=== PATIENT | female | born 1955 | race Caucasian/White ===

== ENCOUNTER 2023-03-15 15:41 | Outpatient (CLI) | payer OTHER, MEDICAID | END 2023-03-15 15:42 | disposition home or self-care (01) | LOC: ULT 15:41 | PROVIDERS: ATTEND Internal Medicine Nephrology | DX: I12.9 Hypertensive chronic kidney disease with stage 1 through stage 4 chronic kidney disease, or unspecified chronic kidney disease (principal); N18.9 Chronic kidney disease, unspecified | CPT/HCPCS: 76770; 93975 ==

== ENCOUNTER 2023-09-11 17:08 | Inpatient (IN) | payer OTHER, MEDICAID ==
[2023-09-11 18:11] VITALS: BMI 23.1
[2023-09-11] MEDS ORDERED: Ondansetron PF 4 MG/2 ML Vial IVP PRN (20:59)
[2023-09-11 22:28] LABS: #Basophils 0.03 10x3/uL (0.0-0.2); %Basophils 0.3 % (0.0-1.0); %Eosinophils 1.6 % (0.0-10.0); %Monocytes 8.6 % (0.0-10.0); %Neutrophils 70.3 % (42.0-75.0); Hematocrit 40.3 % (36.0-47.0); Hemoglobin 13.3 g/dL (12.0-16.0); Mean Corpuscular Hemoglobin 28.7 pg (27.0-31.0); Mean Platelet Volume 10.5 fL (7.4-10.4); Platelet Count 185 10x3/uL (130-400); RBC Distribution Width 16.1 % (11.5-14.5); Red Blood Cell (RBC) Count 4.63 mill/uL (4.20-5.40)
[2023-09-11] MEDS: QUEtiapine 300 MG TAB PO SCH (22:37)
[2023-09-11] MEDS: Loratadine 10 MG TAB PO SCH (22:38)
[2023-09-11] MEDS: traMADol HCl 50 MG TAB PO PRN (22:38)
[2023-09-11] MEDS: hydrOXYzine 25 MG TAB PO PRN (22:40)
[2023-09-11] MEDS: Famotidine 20 MG TAB PO SCH (22:40)
[2023-09-11] MEDS: GoLYTELY 4,000 ml Bottle PO SCH (22:41)
[2023-09-11 22:46] LABS: Anion Gap 13 mmol/L (10-20); BUN (Urea Nitrogen) 46 mg/dL (9.8-20.1); Calc. Creatinine Clearance 36 mL/min (70-130); Carbon Dioxide 18 mmol/L (23-31); Chloride 113 mmol/L (98-107); Estimated GFR 41; Glucose 204 mg/dL (80-115); Potassium 4.8 mmol/L (3.5-5.1); Sodium 139 mmol/L (136-145)
[2023-09-11] MEDS: Cyclobenzaprine 10 MG TAB PO SCH (23:12)
[2023-09-11] MEDS: Gabapentin 300 MG CAP PO SCH (23:12)
[2023-09-11] MEDS: Ipratropium Bromide 2.5 ml Neb NEB SCH (23:15)
[2023-09-12 05:00] LABS: Hemoglobin A1c 5.9 % (4.0-6.0)
[2023-09-12 05:08] LABS: Anion Gap 10 mmol/L (10-20); BUN (Urea Nitrogen) 38 mg/dL (9.8-20.1); Calc. Creatinine Clearance 49 mL/min (70-130); Calcium 8.8 mg/dL (7.8-10.44); Carbon Dioxide 17 mmol/L (23-31); Chloride 112 mmol/L (98-107); Estimated GFR 59; Glucose 90 mg/dL (80-115); Iron 189 ug/dL (50-170); Iron Binding Capacity, Total 199 mcg/dL (265-497); Potassium 4.3 mmol/L (3.5-5.1); Sodium 135 mmol/L (136-145)
[2023-09-12 05:25] LABS: Hep C Index 0.05 S/CO (0-0.79)
[2023-09-12 07:01] LABS: Hep A IgM AB NONREACTIVE (NonReactive); Hep B Surf Ag NONREACTIVE S/CO (NonReactive); Hepatitis B Core IgM Abs NONREACTIVE S/CO (NonReactive)
[2023-09-12] MEDS: Mometasone 200 MCG/Formoterol 5 MCG 120 PUFF INHALER INH SCH (07:10)
[2023-09-12] MEDS: Loratadine 10 MG TAB PO SCH (08:11)
[2023-09-12] MEDS: QUEtiapine 300 MG TAB PO SCH (08:11)
[2023-09-12] MEDS: Famotidine/PF 20 mg/2ml Vial SLOW IVP SCH (08:11)
[2023-09-12] MEDS: Levothyroxine Sodium 25 MCG TAB PO SCH (08:12)
[2023-09-12] MEDS ORDERED: Potassium Chloride 20 MEQ TAB PO SCH (09:00)
[2023-09-12] MEDS ORDERED: hydrOXYzine 25 MG TAB PO SCH (09:00)
[2023-09-12 09:11] LABS: HBSAB Concentration Less than 8.00 mIU/mL
[2023-09-12] MEDS: QUEtiapine 25 MG TAB PO SCH (09:33)
[2023-09-12] MEDS: Gabapentin 300 MG CAP PO SCH (09:33)
[2023-09-12] MEDS: Potassium Bicarbonate/Cit Ac 20 MEQ TAB PO SCH (09:34)
[2023-09-12] MEDS: Ascorbic Acid 500 mg Chewable Tablet PO SCH (09:34)
[2023-09-12] MEDS: lamoTRIgine 100 MG TAB PO SCH (09:34)
[2023-09-12] MEDS: Cyclobenzaprine 10 MG TAB PO SCH (09:34)
[2023-09-12] MEDS: Lisinopril 5 MG TAB PO SCH (09:35)
[2023-09-12] MEDS: Pantoprazole 40 MG VIAL IVP SCH (09:35)
[2023-09-12 09:46] LABS: HBCM Index 0.07 S/CO (0-0.79); Hep A IgM S/CO 0.31 S/CO (0-0.79)
[2023-09-12 09:47] LABS: HBsAg Index 0.21 S/CO (0-0.99)
[2023-09-12 09:52] LABS: Hep B Surf AB NONREACTIVE (NonReactive)
[2023-09-12 09:53] LABS: Hep C IgG Ab NONREACTIVE S/CO (NonReactive)
[2023-09-12 09:56] LABS: Hematocrit 43.4 % (36.0-47.0); Hemoglobin 14.2 g/dL (12.0-16.0)
[2023-09-12] MEDS: Empagliflozin 10 MG TAB PO SCH (10:05)
[2023-09-12 10:50] LABS: Ferritin 286.11 ng/mL (10-291)
[2023-09-12 11:27] VITALS: BMI 23.1
[2023-09-12 11:46] LABS: ANA Symphony (Qualitative) Negative (Negative); ANA Symphony (Quantitative) 0.2 Ratio (< 0.7 Negative); EliA Vaculitis New Method **** NEW METHOD ****; Mitochondrial Ab 0.8 U/mL (<4 Negative); dsDNA IgG Antibody 0.9 IU/mL (<10 Negative)
[2023-09-12] MEDS: Prenatal Vitamin 1 TAB PO SCH (20:25)
[2023-09-12] MEDS: Rosuvastatin 10 MG TAB PO SCH (20:26)
[2023-09-13 03:13] LABS: Hepatitis A Total ABS Positive (Negative)
[2023-09-13 06:31] LABS: #Basophils 0.04 10x3/uL (0.0-0.2); %Basophils 0.4 % (0.0-1.0); %Eosinophils 1.1 % (0.0-10.0); %Lymphocytes 14.5 % (21.0-51.0); %Monocytes 9.3 % (0.0-10.0); %Neutrophils 74.4 % (42.0-75.0); Hematocrit 44.2 % (36.0-47.0); Hemoglobin 14.5 g/dL (12.0-16.0); Mean Corpuscular HGB CONC 32.8 g/dL (32.0-36.0); Mean Corpuscular Hemoglobin 28.1 pg (27.0-31.0); Mean Corpuscular Volume 85.7 fL (78.0-98.0); Mean Platelet Volume 9.5 fL (7.4-10.4); Platelet Count 196 10x3/uL (130-400); RBC Distribution Width 15.9 % (11.5-14.5); Red Blood Cell (RBC) Count 5.16 mill/uL (4.20-5.40)
[2023-09-13 06:49] LABS: ALT (SGPT) 42 U/L (8-55); AST (SGOT) 60 U/L (5-34); Alkaline Phosphatase 154 U/L (40-110); Anion Gap 14 mmol/L (10-20); BUN (Urea Nitrogen) 15 mg/dL (9.8-20.1); Bilirubin, Total 0.8 mg/dL (0.2-1.2); Calc. Creatinine Clearance 71 mL/min (70-130); Calcium 8.6 mg/dL (7.8-10.44); Carbon Dioxide 25 mmol/L (23-31); Chloride 104 mmol/L (98-107); Estimated GFR 93; Globulin 2.7 g/dL (2.4-3.5); Glucose 177 mg/dL (80-115); Potassium 3.5 mmol/L (3.5-5.1); Protein, Total 5.7 g/dL (5.8-8.1); Sodium 139 mmol/L (136-145)
[2023-09-13] MEDS ORDERED: PROPOFOL 0 ML ONE (08:58)
[2023-09-13] MEDS ORDERED: Lidocaine 1% PF 5 ML VIAL ONE (08:58)
[2023-09-13] MEDS ORDERED: PROPOFOL 200 MG/20 ML VIAL ONE (09:14)
[2023-09-13] MEDS: Famotidine 20 MG TAB PO SCH (10:44)
[2023-09-13] MEDS ORDERED: hydrOXYzine 25 MG TAB PO SCH (15:00)
[2023-09-13] MEDS: Acetaminophen 500 MG TAB PO PRN (16:11)
[2023-09-13] MEDS: hydrOXYzine 25 MG TAB PO SCH (21:25)
[2023-09-13] MEDS: Polyethylene Glycol 3350 17 GM Packet PO SCH (21:26)
[2023-09-14 06:17] LABS: #Basophils 0.03 10x3/uL (0.0-0.2); %Basophils 0.4 % (0.0-1.0); %Eosinophils 3.1 % (0.0-10.0); %Lymphocytes 23.6 % (21.0-51.0); %Monocytes 9.1 % (0.0-10.0); %Neutrophils 63.4 % (42.0-75.0); Hematocrit 43.5 % (36.0-47.0); Hemoglobin 14.5 g/dL (12.0-16.0); Mean Corpuscular HGB CONC 33.3 g/dL (32.0-36.0); Mean Corpuscular Hemoglobin 28.5 pg (27.0-31.0); Mean Corpuscular Volume 85.5 fL (78.0-98.0); Mean Platelet Volume 9.8 fL (7.4-10.4); Platelet Count 226 10x3/uL (130-400); RBC Distribution Width 15.5 % (11.5-14.5); Red Blood Cell (RBC) Count 5.09 mill/uL (4.20-5.40)
[2023-09-14 06:38] LABS: ALT (SGPT) 33 U/L (8-55); AST (SGOT) 44 U/L (5-34); Albumin 2.8 g/dL (3.4-4.8); Alkaline Phosphatase 135 U/L (40-110); Anion Gap 13 mmol/L (10-20); BUN (Urea Nitrogen) 9 mg/dL (9.8-20.1); Bilirubin, Total 0.8 mg/dL (0.2-1.2); Calc. Creatinine Clearance 73 mL/min (70-130); Calcium 8.9 mg/dL (7.8-10.44); Carbon Dioxide 27 mmol/L (23-31); Chloride 104 mmol/L (98-107); Estimated GFR 94; Globulin 2.8 g/dL (2.4-3.5); Glucose 107 mg/dL (80-115); Potassium 3.2 mmol/L (3.5-5.1); Protein, Total 5.6 g/dL (5.8-8.1); Sodium 141 mmol/L (136-145)
[2023-09-14] MEDS: hydrOXYzine 25 MG TAB PO PRN (12:57)
[2023-09-14 14:17] LABS: Smooth Muscle Total ABS 1 Units (0-19)
[2023-09-14] MEDS ORDERED: Dextrose 50% Abboject 50 ML SYRINGE SLOW IVP PRN (19:45)
[2023-09-14] MEDS ORDERED: Glucagon 1 MG/ML KIT IM PRN (19:45)
[2023-09-14] MEDS ORDERED: Dextrose 5% in Water 1,000 ML IV PRN (19:45)
[2023-09-14] MEDS: Famotidine 20 MG TAB PO SCH (20:39)
[2023-09-14] MEDS: NS 0.9% w/ 20 MEQ KCL 1,000 ML/1,000 ML BAG IV SCH (21:57)
[2023-09-15 06:36] LABS: ALT (SGPT) 30 U/L (8-55); AST (SGOT) 36 U/L (5-34); Albumin 2.8 g/dL (3.4-4.8); Alkaline Phosphatase 117 U/L (40-110); Anion Gap 10 mmol/L (10-20); BUN (Urea Nitrogen) 8 mg/dL (9.8-20.1); Bilirubin, Total 0.7 mg/dL (0.2-1.2); Calc. Creatinine Clearance 69 mL/min (70-130); Calcium 8.8 mg/dL (7.8-10.44); Carbon Dioxide 26 mmol/L (23-31); Chloride 106 mmol/L (98-107); Estimated GFR 90; Globulin 2.6 g/dL (2.4-3.5); Glucose 105 mg/dL (80-115); Potassium 3.8 mmol/L (3.5-5.1); Protein, Total 5.4 g/dL (5.8-8.1); Sodium 138 mmol/L (136-145)
[2023-09-15 06:58] LABS: #Basophils 0.04 10x3/uL (0.0-0.2); %Basophils 0.5 % (0.0-1.0); %Eosinophils 3.8 % (0.0-10.0); %Lymphocytes 24.3 % (21.0-51.0); %Monocytes 9.3 % (0.0-10.0); %Neutrophils 61.3 % (42.0-75.0); Hematocrit 42.3 % (36.0-47.0); Hemoglobin 13.8 g/dL (12.0-16.0); Mean Corpuscular HGB CONC 32.6 g/dL (32.0-36.0); Mean Corpuscular Hemoglobin 28.9 pg (27.0-31.0); Mean Corpuscular Volume 88.7 fL (78.0-98.0); Mean Platelet Volume 9.5 fL (7.4-10.4); Platelet Count 245 10x3/uL (130-400); RBC Distribution Width 15.3 % (11.5-14.5); Red Blood Cell (RBC) Count 4.77 mill/uL (4.20-5.40)
[2023-09-15] MEDS ORDERED: Potassium Bicarbonate/Cit Ac 20 MEQ TAB ONE (09:15)
[2023-09-15] MEDS ORDERED: Gabapentin 300 MG CAP ONE (09:15)
[2023-09-15] MEDS ORDERED: Cyclobenzaprine 10 MG TAB ONE (09:15)
[2023-09-15] MEDS ORDERED: lamoTRIgine 100 MG TAB ONE (09:15)
[2023-09-15] MEDS ORDERED: Empagliflozin 10 MG TAB ONE (09:15)
[2023-09-15] MEDS ORDERED: Ascorbic Acid 500 mg Chewable Tablet ONE (09:15)
[2023-09-15] MEDS ORDERED: Famotidine 20 MG TAB ONE (09:15)
[2023-09-15] MEDS ORDERED: QUEtiapine 25 MG TAB ONE ×2 (09:15→11:50)
[2023-09-15] MEDS ORDERED: hydrOXYzine 25 MG TAB ONE (09:15)
[2023-09-15] MEDS ORDERED: Lisinopril 5 MG TAB ONE (09:15)
[2023-09-15] MEDS ORDERED: Polyethylene Glycol 3350 17 GM Packet ONE (09:15)
[2023-09-15] MEDS ORDERED: NS 0.9% w/ 20 MEQ KCL 1,000 ML BAG ONE (11:50)
[2023-09-15] MEDS ORDERED: traMADol HCl 50 MG TAB ONE (11:50)
[2023-09-15] MEDS ORDERED: Ipratropium Bromide 2.5 ml Neb NEB PRN (14:48)
[2023-09-16 04:38] LABS: #Basophils 0.07 10x3/uL (0.0-0.2); %Lymphocytes 39.8 % (21.0-51.0); %Neutrophils 41.8 % (42.0-75.0); Hematocrit 43.4 % (36.0-47.0); Mean Corpuscular HGB CONC 32.3 g/dL (32.0-36.0); Mean Corpuscular Hemoglobin 27.9 pg (27.0-31.0); Mean Corpuscular Volume 86.5 fL (78.0-98.0); Mean Platelet Volume 9.3 fL (7.4-10.4); Platelet Count 260 10x3/uL (130-400); Red Blood Cell (RBC) Count 5.02 mill/uL (4.20-5.40)
[2023-09-16] MEDS: QUEtiapine 25 MG TAB PO SCH (09:08)
[2023-09-16] MEDS: Insulin Lispro 100 UNIT/ML 10 ML VIAL SC PRN (12:38)
[2023-09-17] MEDS: Ondansetron ODT 4 MG TAB PO PRN (09:30)
[2023-09-17 17:35] VITALS: BP 123/74; TEMP 97.9
== END 2023-09-17 18:41 | disposition home or self-care (01) | DRG 394 ==
LOC: 2NO 17:08 → UNDODISIN 09-17 18:41
PROVIDERS: ADMIT Internal Medicine; ATTEND Family Medicine
PROC: 0DBN8ZX Excision of Sigmoid Colon, Via Natural or Artificial Opening Endoscopic, Diagnostic (ICD-10-PCS; principal; 2023-09-13)
DX: K55.039 Acute (reversible) ischemia of large intestine, extent unspecified (principal); D62 Acute posthemorrhagic anemia; N17.9 Acute kidney failure, unspecified; I95.9 Hypotension, unspecified; F41.9 Anxiety disorder, unspecified; J44.9 Chronic obstructive pulmonary disease, unspecified; I10 Essential (primary) hypertension; F17.290 Nicotine dependence, other tobacco product, uncomplicated; M19.90 Unspecified osteoarthritis, unspecified site; K21.9 Gastro-esophageal reflux disease without esophagitis; F32.A Depression, unspecified; E11.9 Type 2 diabetes mellitus without complications; E03.9 Hypothyroidism, unspecified; E78.5 Hyperlipidemia, unspecified; Z88.5 Allergy status to narcotic agent; Z88.0 Allergy status to penicillin; Z88.1 Allergy status to other antibiotic agents; Z88.2 Allergy status to sulfonamides; Z88.8 Allergy status to other drugs, medicaments and biological substances; Z79.890 Hormone replacement therapy; Z79.899 Other long term (current) drug therapy; Z90.49 Acquired absence of other specified parts of digestive tract; Z90.710 Acquired absence of both cervix and uterus; Z98.51 Tubal ligation status; Z79.4 Long term (current) use of insulin; K59.09 Other constipation
CPT/HCPCS: 26641; 36415; 36416; 36430; 70450; 71045; 72125; 74177; 74183; 80048; 80053; 80074; 80307; 82728; 83036; 83516; 83540; 83550; 83880; 84484; 85014; 85018; 85025; 85610; 85730; 86015; 86038; 86225; 86706; 86708; 86850; 86900; 86901; 88305; 93005; 94640; 96365; 96374; 96375; C9113; J2354; J2405; J2704; J3480; J3490; J7050; P9016; P9040; Q0162; Q9967

== ENCOUNTER 2023-09-17 19:00 | Emergency (ER) | payer OTHER, MEDICAID ==
[2023-09-17] MEDS ORDERED: Lidocaine 1% PF 5 ML VIAL ONE (19:58)
[2023-09-17] MEDS ORDERED: Lorazepam 0.5 MG TAB ONE (20:45)
[2023-09-17] MEDS ORDERED: traMADol HCl 50 MG TAB ONE (21:27)
== END 2023-09-17 21:36 | disposition home or self-care (01) ==
LOC: ERS 19:00
DX: S63.125A Dislocation of interphalangeal joint of left thumb, initial encounter (principal); T14.8XXA Other injury of unspecified body region, initial encounter; E11.9 Type 2 diabetes mellitus without complications; I10 Essential (primary) hypertension; F17.290 Nicotine dependence, other tobacco product, uncomplicated; W10.9XXA Fall (on) (from) unspecified stairs and steps, initial encounter
CPT/HCPCS: 70450; 72125

== ENCOUNTER 2023-09-19 19:57 | Inpatient (IN) | payer OTHER, MEDICAID ==
[2023-09-19 21:01] VITALS: BMI 21.4
[2023-09-19] MEDS ORDERED: Dextrose 5% in Water 1,000 ML IV PRN (21:33)
[2023-09-19] MEDS ORDERED: Dextrose 50% Abboject 50 ML SYRINGE SLOW IVP PRN (21:33)
[2023-09-19] MEDS ORDERED: Ipratropium/Albuterol 3 ML NEB NEB PRN (21:36)
[2023-09-19] MEDS ORDERED: Insulin Lispro 100 UNIT/ML 10 ML VIAL SC PRN ×2 (21:42→21:43)
[2023-09-19] MEDS ORDERED: QUEtiapine 25 MG TAB PO PRN (22:25)
[2023-09-19] MEDS: traZODone HCl 50 MG TAB PO SCH (23:32)
[2023-09-19] MEDS: Rosuvastatin 10 MG TAB PO SCH (23:32)
[2023-09-19] MEDS: QUEtiapine 300 MG TAB PO SCH (23:33)
[2023-09-19] MEDS: Loratadine 10 MG TAB PO SCH (23:33)
[2023-09-19] MEDS: traMADol HCl 50 MG TAB PO SCH (23:33)
[2023-09-19] MEDS: Cyclobenzaprine 10 MG TAB PO SCH (23:33)
[2023-09-19] MEDS: Gabapentin 300 MG CAP PO SCH (23:34)
[2023-09-20] MEDS: Ipratropium/Albuterol 3 ML NEB NEB SCH (00:03)
[2023-09-20 05:18] LABS: #Basophils 0.07 10x3/uL (0.0-0.2); %Basophils 0.8 % (0.0-1.0); %Eosinophils 5.2 % (0.0-10.0); %Lymphocytes 39.4 % (21.0-51.0); %Monocytes 11.7 % (0.0-10.0); %Neutrophils 40.8 % (42.0-75.0); Hematocrit 41.5 % (36.0-47.0); Hemoglobin 13.3 g/dL (12.0-16.0); Mean Corpuscular Hemoglobin 28.2 pg (27.0-31.0); Mean Corpuscular Volume 87.9 fL (78.0-98.0); Platelet Count 262 10x3/uL (130-400); RBC Distribution Width 14.9 % (11.5-14.5); Red Blood Cell (RBC) Count 4.72 mill/uL (4.20-5.40)
[2023-09-20 05:36] LABS: Anion Gap 9 mmol/L (10-20); BUN (Urea Nitrogen) 9 mg/dL (9.8-20.1); Calc. Creatinine Clearance 72 mL/min (70-130); Calcium 8.6 mg/dL (7.8-10.44); Carbon Dioxide 25 mmol/L (23-31); Chloride 110 mmol/L (98-107); Estimated GFR 95; Glucose 93 mg/dL (80-115); Potassium 3.6 mmol/L (3.5-5.1); Sodium 140 mmol/L (136-145)
[2023-09-20] MEDS: Levothyroxine Sodium 25 MCG TAB PO SCH (05:45)
[2023-09-20] MEDS: Mometasone 100 MCG/Formoterol 5 MCG 120 PUFF INHALER INH SCH (07:20)
[2023-09-20] MEDS: Cyclobenzaprine 10 MG TAB PO SCH (08:47)
[2023-09-20] MEDS: lamoTRIgine 100 MG TAB PO SCH (08:47)
[2023-09-20] MEDS: QUEtiapine 25 MG TAB PO SCH (08:48)
[2023-09-20] MEDS: Gabapentin 300 MG CAP PO SCH (08:48)
[2023-09-20] MEDS: Lisinopril 5 MG TAB PO SCH (08:48)
[2023-09-20] MEDS ORDERED: Non-Formulary Item 1 EACH (Tiotropium Bromide 4 GM Inhaler) INH SCH (09:00)
[2023-09-20] MEDS: Ondansetron PF 4 MG/2 ML Vial IVP PRN (16:27)
[2023-09-20] MEDS: traMADol HCl 50 MG TAB PO PRN (18:05)
[2023-09-20] MEDS: Acetaminophen 500 MG TAB PO SCH (18:06)
[2023-09-20] MEDS: hydrOXYzine 25 MG TAB PO SCH (18:23)
[2023-09-20] MEDS ORDERED: traMADol HCl 50 MG TAB PO SCH (21:00)
[2023-09-20] MEDS: QUEtiapine 300 MG TAB PO SCH (22:18)
[2023-09-20] MEDS: traZODone HCl 50 MG TAB PO SCH (22:19)
[2023-09-20] MEDS: Loratadine 10 MG TAB PO SCH (22:19)
[2023-09-20] MEDS: Dicyclomine 10 MG CAP PO SCH (22:19)
[2023-09-20] MEDS: Rosuvastatin 10 MG TAB PO SCH (22:19)
[2023-09-21] MEDS: Lactated Ringer's 1,000 ML IV SCH (15:06)
[2023-09-22 05:54] LABS: Anion Gap 13 mmol/L (10-20); BUN (Urea Nitrogen) 8 mg/dL (9.8-20.1); Calc. Creatinine Clearance 71 mL/min (70-130); Carbon Dioxide 22 mmol/L (23-31); Chloride 107 mmol/L (98-107); Estimated GFR 95; Glucose 89 mg/dL (80-115); Potassium 3.9 mmol/L (3.5-5.1); Sodium 138 mmol/L (136-145)
[2023-09-22] MEDS: Pantoprazole DR 40 MG TAB PO SCH (09:28)
[2023-09-23] MEDS: Ondansetron ODT 4 MG TAB PO PRN (06:56)
[2023-09-23 08:07] LABS: #Basophils 0.04 10x3/uL (0.0-0.2); %Basophils 0.6 % (0.0-1.0); %Eosinophils 4.2 % (0.0-10.0); %Lymphocytes 29.6 % (21.0-51.0); %Monocytes 8.6 % (0.0-10.0); %Neutrophils 56.7 % (42.0-75.0); Hematocrit 42.7 % (36.0-47.0); Hemoglobin 13.8 g/dL (12.0-16.0); Mean Corpuscular HGB CONC 32.3 g/dL (32.0-36.0); Mean Corpuscular Hemoglobin 28.9 pg (27.0-31.0); Mean Corpuscular Volume 89.3 fL (78.0-98.0); Mean Platelet Volume 8.8 fL (7.4-10.4); Platelet Count 280 10x3/uL (130-400); RBC Distribution Width 14.4 % (11.5-14.5); Red Blood Cell (RBC) Count 4.78 mill/uL (4.20-5.40)
[2023-09-23 08:22] LABS: ALT (SGPT) 13 U/L (8-55); AST (SGOT) 16 U/L (5-34); Alkaline Phosphatase 82 U/L (40-110); Anion Gap 10 mmol/L (10-20); BUN (Urea Nitrogen) 8 mg/dL (9.8-20.1); Bilirubin, Total 0.6 mg/dL (0.2-1.2); Calc. Creatinine Clearance 69 mL/min (70-130); Calcium 9.3 mg/dL (7.8-10.44); Carbon Dioxide 27 mmol/L (23-31); Chloride 104 mmol/L (98-107); Estimated GFR 94; Globulin 2.9 g/dL (2.4-3.5); Glucose 107 mg/dL (80-115); Potassium 3.6 mmol/L (3.5-5.1); Protein, Total 5.9 g/dL (5.8-8.1); Sodium 137 mmol/L (136-145)
[2023-09-23 08:49] LABS: INR-International Normal Ratio 0.9; Prothrombin Time 12.5 sec (12.0-14.7)
[2023-09-23 08:50] LABS: PTT 33.6 sec (22.9-36.1)
[2023-09-23 16:14] VITALS: BP 120/79; TEMP 98
== END 2023-09-23 16:40 | disposition home or self-care (01) | DRG 395 ==
LOC: SURG A 20:45 → OBSVTOIN 09-22 18:14
PROVIDERS: ADMIT Student in an Organized Health Care Education/Training Program; ATTEND Family Medicine
DX: K55.9 Vascular disorder of intestine, unspecified (principal); J44.9 Chronic obstructive pulmonary disease, unspecified; E11.9 Type 2 diabetes mellitus without complications; I10 Essential (primary) hypertension; F41.9 Anxiety disorder, unspecified; Z88.2 Allergy status to sulfonamides; Z88.5 Allergy status to narcotic agent; Z88.8 Allergy status to other drugs, medicaments and biological substances; Z88.0 Allergy status to penicillin; Z88.1 Allergy status to other antibiotic agents; Z79.890 Hormone replacement therapy; Z79.899 Other long term (current) drug therapy; Z90.49 Acquired absence of other specified parts of digestive tract; Z71.6 Tobacco abuse counseling; R63.4 Abnormal weight loss; Z68.21 Body mass index [BMI] 21.0-21.9, adult
CPT/HCPCS: 36415; 36416; 70551; 72100; 80048; 80053; 83735; 85025; 85610; 85730; 86850; 86900; 86901; 93005; 93010; 94640; 96374; 96376; G0378; J2405; J7120; J7620; Q0162

== ENCOUNTER 2024-08-25 17:08 | Emergency (ER) | payer OTHER ==
[2024-08-25 19:06] LABS: #Basophils 0.04 10x3/uL (0.0-0.2); #Monocytes 1.04 10x3/uL (0.11-0.59); #Neutrophils 4.06 10x3/uL (1.40-6.50); %Basophils 0.6 % (0.0-1.0); %Eosinophils 1.4 % (0.0-10.0); %Lymphocytes 25.9 % (21.0-51.0); %Monocytes 14.6 % (0.0-10.0); %Neutrophils 57.2 % (42.0-75.0); Hematocrit 41.6 % (36.0-47.0); Hemoglobin 13.6 g/dL (12.0-16.0); Mean Corpuscular HGB CONC 32.7 g/dL (32.0-36.0); Mean Corpuscular Hemoglobin 28.9 pg (27.0-31.0); Mean Corpuscular Volume 88.3 fL (78.0-98.0); Mean Platelet Volume 9.9 fL (7.4-10.4); Platelet Count 174 10x3/uL (130-400); RBC Distribution Width 15.8 % (11.5-14.5); Red Blood Cell (RBC) Count 4.71 mill/uL (4.20-5.40)
[2024-08-25 19:24] LABS: Lipase 10 U/L (8-78)
[2024-08-25 19:26] LABS: Acetaminophen Less than 10 mcg/mL (Less than 10); Alcohol Less than 10.0 mg/dL (Less than 10); Salicylate Less than 8.0 mg/dL (Less than 8.0)
[2024-08-25 19:30] LABS: ALT (SGPT) 25 U/L (Less than 34); AST (SGOT) 50 U/L (11-34); Albumin 4.2 g/dL (3.1-4.5); Alkaline Phosphatase 108 U/L (40-110); Anion Gap 16 mmol/L (10-20); BUN (Urea Nitrogen) 38 mg/dL (9.8-20.1); Bilirubin, Total 0.9 mg/dL (0.3-1.2); Calc. Creatinine Clearance 0 mL/min (70-130); Calcium 9.5 mg/dL (7.8-10.44); Carbon Dioxide 23 mmol/L (23-31); Chloride 105 mmol/L (98-107); Estimated GFR 75; Globulin 3.3 g/dL (2.4-3.5); Glucose 92 mg/dL (80-115); Potassium 3.3 mmol/L (3.5-5.1); Protein, Total 7.5 g/dL (5.8-8.1); Sodium 141 mmol/L (136-145)
[2024-08-25 19:36] LABS: Troponin I Less than 0.010 ng/mL (< 0.028)
[2024-08-26] MEDS ORDERED: hydrOXYzine 25 MG TAB ONE (00:18)
[2024-08-26] MEDS ORDERED: Divalproex Sodium 500 MG ER.TAB ONE (00:18)
[2024-08-26] MEDS ORDERED: Gabapentin 100 MG CAP ONE (00:56)
[2024-08-26] MEDS ORDERED: Gabapentin 400 MG CAP ONE ×2 (00:56→00:57)
[2024-08-26] MEDS ORDERED: QUEtiapine 200 MG TAB PO SCH (21:00)
[2024-08-26] MEDS ORDERED: Rosuvastatin 10 MG TAB PO SCH (21:00)
== END 2024-08-26 16:08 ==
LOC: ERS 17:08
DX: F23 Brief psychotic disorder (principal); I10 Essential (primary) hypertension; E11.9 Type 2 diabetes mellitus without complications; F17.290 Nicotine dependence, other tobacco product, uncomplicated; F17.210 Nicotine dependence, cigarettes, uncomplicated; Z55.6 Problems related to health literacy; Z79.4 Long term (current) use of insulin; Z79.890 Hormone replacement therapy; Z79.899 Other long term (current) drug therapy; Z79.84 Long term (current) use of oral hypoglycemic drugs
CPT/HCPCS: 70450; 71045; 80053; 80307; 82140; 83690; 84443; 84484; 85025; 93005; 94760; 96360